=== PATIENT | male | born 1940 | race Asian ===

== ENCOUNTER → 2023-04-27 | Outpatient (CLI) | payer OTHER ==
[2023-04-27 14:52] LABS: FREE T4 (FREE THYROXINE) 1.34 ng/dL (0.76-1.46); THYROID STIMULATING HORMONE 1.2 uIU/mL (0.36-3.74)
== END | disposition home or self-care (01) ==
LOC: RADPV 12:44
PROVIDERS: ATTEND Chiropractor
DX: I08.3 Combined rheumatic disorders of mitral, aortic and tricuspid valves (principal); I48.91 Unspecified atrial fibrillation; E04.1 Nontoxic single thyroid nodule
CPT/HCPCS: 84439; 84443; 84481; 93005; 93306